=== PATIENT | male | born 1965 | race American Indian/Alaskan Native ===

== ENCOUNTER 2017-01-10 09:30 | Emergency (ER) | payer MEDICARE ==
[2017-01-10 09:43] VITALS: BP 145/75
--- NOTE | 2017-01-10 18:42 | Emergency Department Report ---
Entered by VIKA MARR, acting as scribe for BRENDON GERMAN NP. ED Male HPI - General Chief complaint: Urogenital-Male Stated complaint: HERNIA Time Seen by Provider: 01/10/17 12:45 Source: patient Mode of arrival: Ambulatory Limitations: No Limitations - History of Present Illness Initial comments: This is a 51 y/o male, nontoxic, well nourished in appearance, no acute signs of distress with no significant PMHx presents to the ED c/o right inguinal hernia that began 4 months ago. Rates pain a 8/10 in severity, which he describes aching in quality. Aggravated with movement, urination, and palpation , and alleviated with immobilization. Denies fever, chills, chest pain, headache or SOB, dizziness, dysuria, urgency, frequency, abdominal pain, nausea , vomiting, numbness, and tingling. Patient states he is able to "push it back" when it moves. NKDA. LUKE Complaint: hernia Onset/Timin -: month(s) Location: right inguinal region Radiation: none Severity: severe Severity scale (0 -10): 8 Quality: aching Consistency: constant Improves with: other (immobilization) Worsens with: urination, palpation, movement denies other symptoms. denies: discharge, swelling, mass, rash, urinary retention, blood in urine, dysuria, fever, nausea/vomiting, incontinence - Related Data Allergies Allergy/AdvReac Type Severity Reaction Status Date / Time No Known Allergies Allergy Unverified 01/10/17 09:48 ED Review of Systems Comment: All other systems reviewed and negative Constitutional: denies: chills, diaphoresis, fever, weakness Eyes: denies: eye pain, eye discharge, vision change ENT: denies: ear pain, throat pain Respiratory: denies: cough, orthopnea, shortness of breath, SOB with exertion, SOB at rest, stridor, wheezing Cardiovascular: denies: chest pain, palpitations, dyspnea on exertion, orthopnea , edema, syncope, paroxysmal nocturnal dyspnea Endocrine: no symptoms reported Gastrointestinal: denies: abdominal pain, nausea, vomiting, diarrhea Genitourinary: other (right inguinal hernia). denies: urgency, dysuria, frequency, hematuria, discharge, testicular pain, testicular mass Musculoskeletal: denies: back pain, joint swelling, arthralgia, myalgia Skin: denies: rash, lesions Neurological: denies: headache, weakness, numbness, paresthesias Psychiatric: denies: anxiety, depression Hematological/Lymphatic: denies: easy bleeding, easy bruising ED Past Medical Hx - Past Medical History Previous Medical History?: No - Surgical History Past Surgical History?: No - Family History Family history: no significant - Social History Smoking Status: Current Every Day Smoker Substance Use Type: None ED Physical Exam - General Limitations: No Limitations General appearance: alert, in no apparent distress - Head Head exam: Present: atraumatic, normocephalic - Eye Eye exam: Present: normal appearance, PERRL, EOMI. Absent: scleral icterus, conjunctival injection, nystagmus, periorbital swelling, periorbital tenderness Pupils: Present: normal accommodation - ENT ENT exam: Present: normal exam, normal orophraynx, mucous membranes moist, TM's normal bilaterally, normal external ear exam - Neck Neck exam: Present: normal inspection, full ROM. Absent: tenderness, meningismus, lymphadenopathy - Respiratory Respiratory exam: Present: normal lung sounds bilaterally. Absent: respiratory distress, wheezes, rales, rhonchi, stridor, accessory muscle use, decreased breath sounds - Cardiovascular Cardiovascular Exam: Present: regular rate, normal rhythm, normal heart sounds. Absent: irregular rhythm, systolic murmur, diastolic murmur, rubs, gallop - GI/Abdominal GI/Abdominal exam: Present: soft, normal bowel sounds. Absent: distended, tenderness, guarding, rebound, rigid - Rectal Rectal exam: Present: deferred - Expanded Exam Expanded exam: Inguinal Hernia: Right (reducible) - Extremities Exam Extremities exam: Present: normal inspection, full ROM, normal capillary refill. Absent: tenderness, pedal edema, joint swelling, calf tenderness - Back Exam Back exam: Present: normal inspection, full ROM. Absent: tenderness, CVA tenderness (R), CVA tenderness (L), muscle spasm, paraspinal tenderness, vertebral tenderness, rash noted - Neurological Exam Neurological exam: Present: alert, oriented X3, CN II-XII intact, normal gait, reflexes normal - Psychiatric Psychiatric exam: Present: normal affect, normal mood - Skin Skin exam: Present: warm, dry, intact. Absent: rash ED Course Vital Signs 01/10/17 09:38 Temperature 98.9 F Pulse Rate 92 H Respiratory 18 Rate Blood Pressure 145/75 O2 Sat by Pulse 100 Oximetry - Reevaluation(s) Reevaluation #1: 01/10/17 14:35 Patient is able to speak in full sentences with no signs of distress noted. ED Disposition Clinical Impression: Inguinal hernia Qualifiers: Obstruction and gangrene presence: without obstruction or gangrene Laterality: unilateral Recurrence: not specified as recurrent Qualified Code(s): K40.90 - Unilateral inguinal hernia, without obstruction or gangrene, not specified as recurrent Disposition: DC-01 TO HOME OR SELFCARE Is pt being admited?: No Does the pt Need Aspirin: No Condition: Stable Instructions: Inguinal Hernia (ED) Additional Instructions: Follow-up with a general surgeon/primary care doctor in 3-5 days or if symptoms worsen and your are not able to reduce the hernia, return to the emergency department as soon as possible. Referrals: PRIMARY CAREMD [Primary Care Provider] - 3-5 Days LISETH CM MD [Staff Physician] - 3-5 Days MOHAN MACKENZIE MD [Staff Physician] - 3-5 Days [facility] [Outside] - 3-5 Days [facility] [Outside] - 3-5 Days Forms: Work/School Release Form(ED) This documentation as recorded by the JUST[employer] oh JASMINE,accurately reflects the service I personally performed and the decisions made by ,BRENDON GERMAN, DEBBIE.
== END 2017-01-10 14:55 | disposition home or self-care (01) ==
LOC: ED 09:30
DX: K40.90 Unilateral inguinal hernia, without obstruction or gangrene, not specified as recurrent (principal); F17.200 Nicotine dependence, unspecified, uncomplicated
CPT/HCPCS: 99282